=== PATIENT | female | born 1975 | race Caucasian/White ===

== ENCOUNTER 2016-10-25 16:46 | Inpatient (IN) | payer BC ==
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
[2016-10-25] MEDS ORDERED: ZIPRASIDONE 20 MG VIAL IM STA (20:33)
[2016-10-25] MEDS ORDERED: MAG HYDROX/AL HYDROX/SIMETH 30 ML CUP PO PRN (21:28)
[2016-10-25] MEDS ORDERED: MAGNESIUM HYDROXIDE 2,400 MG/10 ML CUP PO PRN (21:28)
[2016-10-25] MEDS ORDERED: LORazepam 1 MG TAB PO PRN (21:28)
[2016-10-25] MEDS ORDERED: ZIPRASIDONE 20 MG VIAL IM PRN (21:28)
[2016-10-25] MEDS ORDERED: LORazepam 2 MG/ML SYRINGE IM PRN (21:35)
[2016-10-26] MEDS: NICOTINE 21MG/24HR PATCH TRANSDERM SCH ×2 (02:44→09:52)
[2016-10-26 08:53] LABS: Basophils % (A) 1 %; CH 32.1; CHCM 32.5; Eosinophils # (A) 0.4 k/uL (0-0.7); Eosinophils % (A) 8 %; HCT 42.8 % (34.0-46.0); HDW 2.05; HGB 13.8 gm/dL (11.4-16.0); Luc # (Auto) 0.17; Luc % (Auto) 3; Lymphocytes # (A) 1.5 k/uL (1.0-4.8); Lymphocytes % (A) 27 %; MCH 31.9 pg (25.0-35.0); MCHC 32.2 g/dL (31.0-37.0); MCV 99.2 fL (80.0-100.0); Mean Platelet Volume 7.6; Monocytes # (A) 0.4 k/uL (0-1.0); Monocytes % (A) 7 %; Neutrophils # (A) 2.9 k/uL (1.3-7.7); Neutrophils % (A) 53 %; RBC 4.31 m/uL (3.80-5.40); RDW 12.6 % (11.5-15.5); WBC 5.4 k/uL (3.8-10.6); WBC (Perox) 5.69
[2016-10-26 09:20] LABS: ALT 28 U/L (9-52); AST 28 U/L (14-36); Alkaline Phosphatase 84 U/L (38-126); Anion Gap 10 mmol/L; Blood Urea Nitrogen 18 mg/dL (7-17); Calcium 8.5 mg/dL (8.4-10.2); Carbon Dioxide 23 mmol/L (22-30); Chloride 109 mmol/L (98-107); Glucose 88 mg/dL (74-99); Non-African American GFR(MDRD) >60 (>60 ml/min/1.73 sqM); Potassium 3.6 mmol/L (3.5-5.1); Sodium 142 mmol/L (137-145); Total Bilirubin 0.7 mg/dL (0.2-1.3); Total Protein 6.3 g/dL (6.3-8.2)
[2016-10-26] MEDS ORDERED: buPROPion XL 300 MG TAB.ER.24H PO SCH (11:20)
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
[2016-10-26] MEDS ORDERED: OLANZapine 5 MG TAB PO STA (13:23)
[2016-10-26] MEDS: OLANZapine 5 MG TAB PO SCH ×2 (15:43→21:39)
[2016-10-26] MEDS ORDERED: buPROPion XL 150 MG TAB.ER.24H PO STA (16:11)
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
[2016-10-27] MEDS ORDERED: buPROPion XL 300 MG TAB.ER.24H PO SCH (09:00)
[2016-10-27] MEDS: ACETAMINOPHEN TAB 325 MG TAB PO PRN ×2 (09:19→20:12)
[2016-10-27] MEDS: NICOTINE 21MG/24HR PATCH TRANSDERM SCH (09:19)
[2016-10-27] MEDS: buPROPion XL 150 MG TAB.ER.24H PO SCH (09:21)
[2016-10-27] MEDS: OLANZapine 5 MG TAB PO SCH ×3 (09:21→21:05)
[2016-10-28] MEDS: buPROPion XL 150 MG TAB.ER.24H PO SCH (09:20)
[2016-10-28] MEDS: NICOTINE 21MG/24HR PATCH TRANSDERM SCH (09:20)
[2016-10-28] MEDS: OLANZapine 5 MG TAB PO SCH ×3 (09:21→21:03)
[2016-10-28] MEDS: ACETAMINOPHEN TAB 325 MG TAB PO PRN (09:22)
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
[2016-10-29] MEDS: ACETAMINOPHEN TAB 325 MG TAB PO PRN ×4 (03:47→21:30)
[2016-10-29] MEDS: buPROPion XL 150 MG TAB.ER.24H PO SCH (07:36)
[2016-10-29] MEDS: OLANZapine 5 MG TAB PO SCH ×3 (07:36→21:19)
[2016-10-29] MEDS: NICOTINE 21MG/24HR PATCH TRANSDERM SCH (07:37)
--- NOTE | 2016-10-29 11:03 | P.PN ---
Progress Note - Text Interval history: The patient is found in group she follows me to an interview room. She reports that she was admitted for acute suicidal ideation but feels that that has subsided. Continues to be troubled over relationship strain with her father her son and others in the family. She is trying to develop a plan for the summer that will develop some healthy coping skills. 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 She has been attending groups she has no questions or concerns regarding her medication. She is on Wellbutrin XL and Zyprexa. Mental status exam: The patient is a thin female appearing her stated age. She has a healing bruise under her right eye. She is dressed in her own clothing. Eye contact is appropriate speech is fluent spontaneous nonpressured. She can be circumstantial at times but there is no evidence of tangential thinking loose associations or flight of ideas. She does feel sad intermittently but feels that her acute suicidal ideation has resolved. She is endorsing no homicidal ideation. She does feel anxious from time to time. She demonstrates no verbal or physical aggressiveness. There is no evidence of hypomanic manic or psychotic symptoms. Insight and judgment improving. Cognitively she is grossly intact. Plan: The patient has no questions or concerns regarding her psychotropic medications we will be continued as written. We will continue to monitor her for safety. She does appear to be stabilizing and is participating in the milieu. Vital signs reviewed.
[2016-10-29 13:23] LABS: Appearance,Urine Clear (Clear); Bilirubin,Urine Negative (Negative); Glucose,Urine (UA) Negative (Negative); Ketones,Urine Negative (Negative); Leukocyte Esterase,Urine Negative (Negative); Nitrite,Urine Negative (Negative); Protein,Urine Negative (Negative); Specific Gravity,Urine 1.003 (1.001-1.035); UA Billing (MACRO vs. MICRO) CHEM; Urobilinogen,Urine <2.0 mg/dL (<2.0)
[2016-10-30] MEDS: ACETAMINOPHEN TAB 325 MG TAB PO PRN ×4 (04:09→21:09)
[2016-10-30] MEDS: NICOTINE 21MG/24HR PATCH TRANSDERM SCH (09:02)
[2016-10-30] MEDS: buPROPion XL 150 MG TAB.ER.24H PO SCH (09:03)
[2016-10-30] MEDS: OLANZapine 5 MG TAB PO SCH ×3 (09:03→21:08)
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
--- NOTE | 2016-10-30 11:26 | XR ---
EXAMINATION TYPE: XR nasal bone DATE OF EXAM ORDERED: 10/30/2016 HISTORY: possible fractured nose. COMPARISON: None. FINDINGS: There is an undisplaced fracture through the superior nasal spine. The nasal septum remain s midline. IMPRESSION: NONDISPLACED FRACTURE OF THE NASION.
[2016-10-31 06:28] VITALS: BP 119/62; PULSE 65; RESP 14; TEMP 98.3
[2016-10-31] MEDS: ACETAMINOPHEN TAB 325 MG TAB PO PRN ×2 (08:04→11:54)
[2016-10-31] MEDS: OLANZapine 5 MG TAB PO SCH (08:05)
[2016-10-31] MEDS: buPROPion XL 150 MG TAB.ER.24H PO SCH (08:05)
[2016-10-31] MEDS: NICOTINE 21MG/24HR PATCH TRANSDERM SCH (09:42)
== END 2016-10-31 15:26 | disposition home or self-care (01) | DRG 885 ==
LOC: EC 16:46 → 3MHU 21:22
PROVIDERS: ADMIT Psychiatry & Neurology Psychiatry; ATTEND Psychiatry & Neurology Psychiatry
DX: F33.2 Major depressive disorder, recurrent severe without psychotic features (principal); R45.851 Suicidal ideations; F41.0 Panic disorder [episodic paroxysmal anxiety]; F17.200 Nicotine dependence, unspecified, uncomplicated; F43.10 Post-traumatic stress disorder, unspecified; Z88.1 Allergy status to other antibiotic agents; F90.9 Attention-deficit hyperactivity disorder, unspecified type; Z81.1 Family history of alcohol abuse and dependence; Z62.810 Personal history of physical and sexual abuse in childhood
CPT/HCPCS: 70160; 70450; 80053; 80306; 81003; 82075; 84443; 85025; 96372; 99285